=== PATIENT | male | born 1945 | race Caucasian/White ===

== ENCOUNTER → 2017-01-14 | Outpatient (CLI) | payer MEDICARE, BC ==
[~2017-01-14] MED LIST: ASA CHILDREN'S81 MG PO; CARDIZEM CD DP120 MG PO; CORDARONE DPS200 MG PO; COUMADIN5 MG PO; FLOMAX DPS0.4 MG PO; HUMALOG100 UNIT/1 SQ; HYDRODIURIL-DPS25 MG PO; LANTUS100 UNITS/ SQ; LIPITOR80 MG PO; LOPRESSOR50 MG PO; MULTIVITAMINS1 EAC1 PO; NORVASC10 MG PO; OMEGA 3 FISH O1 EACH PO; PEPCID DPS20 MG PO; PERCOCET 5 DPS1 TAB PO; PLAVIX75 MG PO; SURFAK DPS240 MG PO; TRICOR145 MG PO; TYLENOL DPS325 MG PO; VITAMIN C500 M1 PO
== END | disposition home or self-care (01) ==
LOC: RAD.S 15:15
DX: M79.89 Other specified soft tissue disorders (principal); M25.561 Pain in right knee

== ENCOUNTER → 2017-03-16 | Outpatient (CLI) | payer MEDICARE, BC | END | disposition home or self-care (01) | LOC: RESC 03-09 11:48 | DX: Z51.81 Encounter for therapeutic drug level monitoring (principal); I48.0 Paroxysmal atrial fibrillation; R94.2 Abnormal results of pulmonary function studies; J98.8 Other specified respiratory disorders; Z79.899 Other long term (current) drug therapy; Z95.0 Presence of cardiac pacemaker ==